=== PATIENT | male | born 1935 | race Caucasian/White ===

== ENCOUNTER 2016-03-26 04:51 | Emergency (ER) | payer MEDICARE ==
[2016-03-26 04:51] VITALS: BMI 28.9
[2016-03-26 05:04] VITALS: BP 171/79; PULSE 70; TEMP 98.2
[2016-03-26] MEDS ORDERED: CYCLOBENZAPRINE 10 MG TAB PO ONE (05:41)
[2016-03-26] MEDS ORDERED: KETOROLAC TROMETHAMINE 10 MG TAB PO ONE (05:41)
--- NOTE | 2016-03-26 05:59 | EDPRACDOC ---
- General Information Chief Complaint: Back Pain Stated Complaint: RT FLANK PAIN Time Seen by Provider: 03/26/16 05:57 Information Source: Patient Mode Of Arrival: Car Home Medications: Home Medications Pravastatin [Pravachol] 20 mg PO HS 03/14/12 Calcium 500 mg PO DAILY 07/12/14 Tamsulosin HCl [Flomax] 0.4 mg PO Q48H 07/12/14 CYANOCOBALAMIN (Vitamin B-12) [Vitamin B-12] 1,000 mcg IM .MONTHLY 12/25/14 Fluticasone/Vilanterol [Breo Ellipta 100-25 Mcg INH] 1 each IH DAILY PRN Docusate Sodium [Colace] 1 cap PO TID 01/08/15 Levofloxacin [Levaquin] 1 tab PO DAILY 01/08/15 Diazepam [Valium] 5 mg PO BID #20 tablet 03/26/16 Ketorolac Tromethamine [Toradol] 10 mg PO TID #20 tablet 03/26/16 Oxycodone HCl/Acetaminophen [Percocet 5-325 mg Tablet] 1 each PO Q4 #20 tablet 03/26/16 Allergies/Adverse Reactions: Allergies Allergy/AdvReac Type Severity Reaction Status Date / Time No Known Allergies Allergy Verified 03/26/16 05:04 - History of Present Illness Onset: 2 days HPI: PATIENT PRESENTS C/O LOW BACK PAIN ON RIGHT SIDE THAT STARTED AFTER LIFTING HIS . NO NUMBNESS OR TINGLING. NO LOSS OF BOWEL OR BLADDER CONTROL. Pain Location: Reports: Right, Lumbar Pain Radiates To: Reports: None Pain Caused By: Reports: Lifting Pain Severity: Reports: Mild Pain Quality: Reports: Aching Worsened By: Reports: Movement ED Past Medical History - History Reviewed Yes Nurses notes reviewed and agree except as marked Travel Outside of [place] in the Last 3 Months?: No - Patient Medical History Cardiac History: Reports: Hypertension (PER H&P FROM PCP NOT ON MEDICATION), Hypercholesterolemia Respiratory History: Reports: COPD (PER HISTORY AND PHYSICAL ), Emphysema (PER HISTORY AND PHYSICAL) GI/ History: Reports: Diverticulosis (PER COLONOSCOPY 2012) Musculoskeletal History: Reports: Arthritis Psychological History: Denies: Depression Systemic History: Denies: Cancer Surgical History: Reports: Hernia Surgery (12/2014 stephanie ing hernia repair), Tonsillectomy/Adnoidectomy - Family Medical History Reports: Hypertension (MOTHER), Cardiac Disorders (MOTHER). Denies: Diabetes, Cancer, Stroke - Social Medical History Smoking Status: Former smoker ETOH: None Substance Abuse: None Lives With: Family Lives In: Home EDM Review of Systems - Review of Systems ROS Negative Except as Marked: Yes All systems reviewed and were negative except as marked Constitutional: No Symptoms Reported. negative: Fever, Chills, Weakness, Fatigue, Loss of Appetite Eyes: No Symptoms Reported. negative: Redness, Blurred Vision, Double Vision, Discharge, Pain, Light Sensitive, Photophobia Ears: No Symptoms Reported. negative: Pain, Hearing Loss, Drainage, Ear Pulling Throat: No Symptoms Reported. negative: Pain, Swelling Nose: No Symptoms Reported. negative: Congestion, Bleeding, Discharge, Injection, Swelling, Deformity, Ecchymosis, Tender, Abrasion, Laceration Mouth: No Symptoms Reported. negative: Pain, Drooling Respiratory: No Symptoms Reported. negative: Cough, Brassy Cough, Barky Cough, Shortness of Breath, Wheezing, Hemoptysis Cardiovascular: No Symptoms Reported. negative: Chest Pain, Palpitations, Syncope, Edema, Orthopnea, PND, Skin Mottling, Cyanosis Gastrointestinal: No Symptoms Reported. negative: Pain, Constipation, Nausea, Vomiting, Diarrhea, Melena, Formula Intolerance Genitourinary: No Symptoms Reported. negative: Dysuria, Hematuria, Frequency, Discharge, Bleeding, Testicular Pain, Neurological: No Symptoms Reported. negative: Headache, Dizziness, Seizure, Numbness, Weakness, Speech Difficulty, Gait Difficulty Musculoskeletal: Back. negative: Arm, Ankle, Chestwall, Elbow, Forearm, Femur, Foot, Hand, Hip, Knee, Leg, Neck, Pelvis, Ribs, Shoulder, Wrist Integumentary: No Symptoms Reported. negative: Itching, Rash, Bruising, Wound Allergic/Immunologic: No Symptoms Reported. negative: Hives, Itching Hematologic: No Symptoms Reported. negative: Lymphadenopathy, Easy Bruising, Easy Bleeding Endocrine: No Symptoms Reported. negative: Weight Gain, Weight Loss Psychiatric: No Symptoms Reported. negative: Anxiety, Depression, Hallucinations, Insomnia, Suicidal - Physical Exam Constitutional: Alert (Awake), No apparent distress Oriented to: Time, Person, Place Last recorded Vital Signs: Last Vital Signs Temp 98.2 F 03/26/16 05:00 Pulse 70 03/26/16 05:00 Resp 20 03/26/16 05:00 BP 171/79 03/26/16 05:00 Pulse Ox 93 03/26/16 05:00 Oxygen Pulse Oxygen Saturation 93 O2 Device Room Air Oxygen Flow Rate Fraction of Inspired Oxygen ( FIO2) - HEENT Head: Normal ( normocephalic) Eye Exam: Normal (PERRL, EOMI, Sclera white) Oropharynx: Normal (Pharynx:Moist without exudate,Gums-no swelling) Tympanic Membrane: Normal ENT EAC: Normal TMJ: Normal Nose: No Symptoms Reported (septum midline) Neck: Normal (FROM, trachea at midline) - Respiratory/Cardiovascular Respiratory: Normal - CTA (BBS clear to auscultation without adventitious sounds ) Cardiovascular: Normal (RRR without murmur, gallop or rub) - GI Auscultation: Normal (NABS) Palpation: Normal (Soft,No rebound or guarding, non distended) Tenderness: Non tender Stein's Sign: Negative - Musculoskeletal Extremities: Normal (Normal tone, Pulses 2+ No cyanosis or edema, FROM) - Integumentary Skin: Normal, Warm, Dry Lymphatics: Normal (no adenopathy) - Neurologic Memory Impaired: Normal Motor Function: Normal (Normal tone, Pulses 2+ No cyanosis or edema, FROM) Cranial Nerve: Normal (CN II-X11 intact sensation, strength 5/5) Cerebellar: Normal Mood Description: Normal Perception: Normal ED Back Exam - Neurologic Motor Deficit: None Reflexes: Normal - Musculoskeletal Cervical: Normal Thoracic: Normal Lumbar: Spasm Midline: Normal Paraspinous: Spasm Straight Leg Raise: Negative Pelvis: Normal Decision Time to Discharge: 05:59 - Departure Yes I personally saw and evaluated the patient. Disposition: Home Condition: Good Final Diagnosis: Lumbar strain Qualifiers: Encounter type: initial encounter Qualified Code(s): S39.012A - Strain of muscle, fascia and tendon of lower back, initial encounter Instructions: Back Pain (ED), Core Strengthening Exercises (GEN), Thoracic ( Lumbar) Strain Education/Counseling Given To: Patient Education/Counseling Given Regarding: Diagnosis, Treatment, Prognosis, Follow Up Referrals: Gt Pastrana MD [Primary Care Provider] - One Week Prescriptions: New Diazepam [Valium] 5 mg PO BID #20 tablet Ketorolac Tromethamine [Toradol] 10 mg PO TID #20 tablet Oxycodone HCl/Acetaminophen [Percocet 5-325 mg Tablet] 1 each PO Q4 #20 tablet No Action Pravastatin [Pravachol] 20 mg PO HS Tamsulosin HCl [Flomax] 0.4 mg PO Q48H Calcium 500 mg PO DAILY CYANOCOBALAMIN (Vitamin B-12) [Vitamin B-12] 1,000 mcg IM .MONTHLY Fluticasone/Vilanterol [Breo Ellipta 100-25 Mcg INH] 1 each IH DAILY PRN PRN Reason: WHEEZING OR COUGH Levofloxacin [Levaquin] 1 tab PO DAILY Docusate Sodium [Colace] 1 cap PO TID
[2016-03-26] MEDS ORDERED: PREDNISONE 20 MG TAB PO ONE (06:00)
== END 2016-03-26 06:21 | disposition home or self-care (01) ==
LOC: ED 04:51
DX: S39.012A Strain of muscle, fascia and tendon of lower back, initial encounter (principal); X58.XXXA Exposure to other specified factors, initial encounter; Y93.9 Activity, unspecified
CPT/HCPCS: 99283; A9270; J3490